=== PATIENT | male | born 1975 | race Caucasian/White ===

== ENCOUNTER 2018-07-11 13:35 | Emergency (ER) | payer SELFPAY ==
[~2018-07-11] VITALS: Ht 154.9 cm; Wt 77.6 kg
[2018-07-11 13:47] VITALS: BP 135/82; PULSE 67; RESP 18; Ht 154.9 cm; Wt 77.6 kg
[2018-07-11] MEDS ORDERED: KETOROLAC 60 MG INJ IM STA (14:10)
[2018-07-11] MEDS ORDERED: CYCL10TA7 PO (14:12)
[2018-07-11] MEDS ORDERED: PSEU-79 PO (14:12)
[2018-07-11] MEDS ORDERED: NAPR-985 PO (14:12)
--- NOTE | 2018-07-11 14:23 | ERD ---
ER Documentation Chief Complaint Chief Complaint sinus congestion/head pain and "Lung pain" x 2 weeks denies cough/SOB HPI 43-year-old male presenting with congestion and posterior back pain times 2 weeks. Patient denies any coughing or shortness of breath. Denies pleuritic chest pain. Denies chest cardiac pain. States he feels tired and has nasal congestion with sinus pressure. Denies medical problems. Allergic to penicillin. Surgical history denies. Social history denies ROS All systems reviewed and are negative except as per history of present illness. Medications Home Meds Active Scripts Cyclobenzaprine Hcl* (Cyclobenzaprine Hcl*) 10 Mg Tablet, 10 MG PO TID, #15 TAB Prov:FANNY BRUNER PA-C 07/11/18 Naproxen* (Naprosyn*) 500 Mg Tablet, 500 MG PO BID PRN for PAIN AND/OR INFLAMMATION, #30 TAB Prov:FANNY BRUNER PA-C 07/11/18 Pseudoephedrine Hcl* (Suphedrin*) 30 Mg Tablet, 30 MG PO Q6 PRN for CONGESTION, #30 TAB Prov:FANNY BRUNER PA-C 07/11/18 PMhx/Soc Medical and Surgical Hx: pt denies Medical Hx, pt denies Surgical Hx Hx Alcohol Use: No Hx Substance Use: No Hx Tobacco Use: No Smoking Status: Never smoker FmHx Family History: No diabetes, No coronary disease, No other Physical Exam Vitals Vital Signs Date Temp Pulse Resp B/P (MAP) Pulse Ox O2 O2 Flow FiO2 Time Delivery Rate 07/11/18 97.9 67 18 135/82 99 13:47 (99) Physical Exam GENERAL: The patient is well-appearing, well-nourished, in no acute distress HEENT: Atraumatic. Conjunctivae are pink. Pupils equal, round, and reactive to light. There is no scleral icterus. Tympanic membranes clear bilaterally. Oropharynx clear. NECK: C-spine is soft and supple. There is no meningismus. There is no cervical lymphadenopathy. CHEST: Clear to auscultation bilaterally. There are no rales, wheezes or rhonchi. HEART: Regular rate and rhythm. No murmurs, clicks, rubs or gallops. SKIN: No rashes Results 24 hrs Current Medications Medications Dose Sig/Eliezer Start Time Status Last (Trade) Ordered Route PRN Stop Time Admin Dose Reason Admin Ketorolac 60 mg ONCE STAT 07/11/18 DC 07/11/18 Tromethamine IM 14:10 14:13 (Toradol) 07/11/18 14:11 Procedures/MDM MDM: 43-year-old male presenting with muscle spasm in the back. Patient also has sinus congestion. I have low suspicion for pneumonia or respiratory abnormalities. I have low suspicion for cardiac or pulmonary emergency. Patient is discharged with strict ER precautions and told to follow-up with primary care within 1-2 days for close evaluation. All questions answered at discharge Departure Diagnosis: Primary Impression: Upper respiratory infection Condition: Stable Patient Instructions: Uri, Viral, No Abx (Adult) Referrals: [facility] YOU HAVE RECEIVED A MEDICAL SCREENING EXAM AND THE RESULTS INDICATE THAT YOU DO NOT HAVE A CONDITION THAT REQUIRES URGENT TREATMENT IN THE EMERGENCY DEPARTMENT. FURTHER EVALUATION AND TREATMENT OF YOUR CONDITION CAN WAIT UNTIL YOU ARE SEEN IN YOUR DOCTORS OFFICE WITHIN THE NEXT 1-2 DAYS. IT IS YOUR RESPONSIBILITY TO MAKE AN APPOINTMENT FOR FOLOW-UP CARE. IF YOU HAVE A PRIMARY DOCTOR --you should call your primary doctor and schedule an appointment IF YOU DO NOT HAVE A PRIMARY DOCTOR YOU CAN CALL OUR PHYSICIAN REFERRAL HOTLINE AT IF YOU CAN NOT AFFORD TO SEE A PHYSICIAN YOU CAN CHOSE FROM THE FOLLOWING [facility] [address] [facility] [place]. [facility] [address] [facility] [address] [facility] [facility] [address] [facility] [facility] [address] [facility]. [facility] [address] Additional Instructions: FOLLOW UP WITH YOUR PRIMARY CARE PHYSICIAN TOMORROW.Return to this facility if you are not improving as expected. FANNY BRUNER PA-C Jul 11, 2018 14:23
== END 2018-07-11 14:22 | disposition home or self-care (01) ==
LOC: FTE 13:35
DX: J06.9 Acute upper respiratory infection, unspecified (principal)
CPT/HCPCS: 96372; 99284; J1885